=== PATIENT | male | born 1940 | race Caucasian/White ===

== ENCOUNTER 2019-06-01 06:58 | Day surgery (SDC) | payer MEDICARE ==
[2019-05-29 10:41] VITALS: BP 131/70
--- NOTE | 2019-05-29 10:57 | NUR ---
REPORTED EKG TO DOCTOR MILLER NO ORDERS, OKAY TO PROCEED.
[2019-05-29 10:58] LABS: BASOPHILS % (AUTO) 0.3 % (0.0-5.0); EOSINOPHILS % (AUTO) 1.4 % (0.0-8.0); HEMATOCRIT 49.4 % (42-54); LYMPHOCYTES % (AUTO) 41.4 % (21.0-51.0); MEAN CORPUSCULAR HEMOGLOBIN 29.9 pg (27.0-33.0); MEAN CORPUSCULAR HGB CONC 34.2 g/dL (32.0-36.0); MEAN CORPUSCULAR VOLUME 87.7 fL (79-99); MONOCYTES % (AUTO) 9.3 % (3.0-13.0); NEUTROPHILS % (AUTO) 47.6 % (40.0-77.0); PLATELET COUNT (AUTO) 218 K/uL (130-400); RED BLOOD CELL COUNT(AUTO) 5.64 MIL/uL (4.50-6.20); RED CELL DISTRIBUTION WIDTH 13.1 % (11.0-15.5); WHITE BLOOD COUNT (AUTO) 7.7 K/uL (4.8-10.8)
[2019-05-29 11:01] LABS: APPEARANCE,URINE Clear (CLEAR); BILIRUBIN,URINE Negative (NEGATIVE); COLOR,URINE Yellow (YELLOW); GLUCOSE, URINE (UA) Negative (NEGATIVE); KETONES,URINE Negative (NEGATIVE); LEUKOCYTE ESTERASE ,URINE Trace (NEGATIVE); NITRATE,URINE Negative (NEGATIVE); OCCULT BLOOD,URINE Negative (NEGATIVE); PROTEIN,URINE Negative (NEGATIVE); UROBILINOGEN,URINE 0.2 mg/dL (0.2-1.0)
[2019-05-29 11:24] LABS: CREATININE 1.2 mg/dL (0.5-1.5); POTASSIUM 4.5 mmol/L (3.5-5.1)
[2019-05-29 11:27] LABS: INR 0.9 (0.85-1.15); PROTHROMBIN TIME 9.5 SEC (9.6-11.6)
[2019-05-29 11:32] LABS: BACTERIA,URINE Rare /HPF (None Seen); RBC,URINE 0-1 /HPF (0-1); SQUAMOUS EPITHELIAL CELL,UR Rare /HPF (0-2); WBC,URINE 0-1 /HPF (0-1)
[2019-06-01] VITALS (22 sets, daily range): BP systolic 101–133; BP diastolic 52–81
[~2019-06-01] VITALS: Ht 176.5 cm; Wt 85.6 kg
[~2019-06-01 06:58] MED LIST: GENTAMICIN 80 MG/NS 100 ML PB 100 ML IV SCH; MULT-1289 PO; TAMS-1 PO
[2019-06-01] MEDS ORDERED: LACTATED RINGERS 1000ML 1,000 ML IV ONE (07:05)
[2019-06-01] MEDS ORDERED: MIDAZOLAM HCL 1 MG/ML 2ML VIAL ONE (07:19)
[2019-06-01] MEDS ORDERED: DEXAMETHASONE SOD PHOSPHATE 10MG/ML 1ML VIAL ONE (07:19)
[2019-06-01] MEDS ORDERED: LIDOCAINE PF 2% 5ML ABBOJECT ONE (07:19)
[2019-06-01] MEDS ORDERED: GLYCOPYRROLATE 1 MG/5 ML SYRINGE ONE (07:19)
[2019-06-01] MEDS ORDERED: PROPOFOL 10 MG/ML 20ML VIAL IV ONE (07:19)
[2019-06-01] MEDS ORDERED: SUCCINYLCHOLINE 200MG/10ML SYR ONE (07:19)
[2019-06-01] MEDS ORDERED: ONDANSETRON HCL 4 MG/2 ML VIAL ONE (07:19)
[2019-06-01] MEDS ORDERED: NEOSTIGMINE 5MG/5ML SYR IV ONE (07:20)
[2019-06-01] MEDS ORDERED: ROCURONIUM 10MG/1ML SYR 10 MG/ML ML ONE (07:20)
[2019-06-01] MEDS ORDERED: FENTANYL CITRATE PF 50 MCG/1 ML 2ML VIAL ONE ×2 (07:22→09:42)
[2019-06-01] MEDS: CEFTRIAXONE SODIUM 1 GM IVP SCH ×2 (07:45→08:50)
[2019-06-01] MEDS ORDERED: EPHEDRINE SULFATE 50 MG/ML AMPULE ONE (09:02)
--- NOTE | 2019-06-01 11:35 | NUR ---
ASSESSMENT RECEIVED PT FROM PACU STAFF Maggi MAGANA RN. PT [id number]. 20FR ROJAS IN PLACE DRAINING TO GRAVITY AT BEDSIDE WITH 100ML OF CLEAR YELLOW URINE. BLOODY DRAINAGE NOTED TO HEAD OF PENIS AND CREASE OF THE LEFT GROIN SITE. NO ACTIVE BLEEDING NOTED. GAUZE APPLIED TO HEAD OF PENIS. WILL CONTINUE TO MONITOR. AT BEDSIDE. DENIES ANY PAIN.
--- NOTE | 2019-06-01 11:38 | NUR ---
CBI CBI DISCONTINUED AND REMOVED USING ASEPTIC TECHNIQUE. DENIES ANY PAIN.
--- NOTE | 2019-06-01 12:15 | NUR ---
DISCHARGE ORAL AND WRITTEN DISCHARGE INSTRUCTIONS GIVEN TO PT AND PTS ALONG WITH PRESCRIPTION. NO ACTIVE BLEEDING NOTED TO GAUZE APPLIED TO HEAD OF PENIS. 200ML OF CLEAR YELLOW URINE NOTED IN BAG. INSTRUCTIONS GIVEN TO ON IMPORTANCE OF MONITORING URINE FOR CLOTS, HEAVY BLEEDING, OR NO FLOW OF URINE. VERBALIZED UNDERSTANDING.
== END 2019-06-01 12:25 | disposition home or self-care (01) ==
LOC: DAH 06:58
PROVIDERS: ATTEND Urology
DX: N40.1 Benign prostatic hyperplasia with lower urinary tract symptoms (principal); N35.919 Unspecified urethral stricture, male, unspecified site; R31.9 Hematuria, unspecified
CPT/HCPCS: 36415; 52648; 71045; 80048; 81001; 85025; 85610; 87088; 93005; 96365; A4215; A4221; A4222; A4223; A4354; A4358; A4452; A4600; A4663; A6260; J0330; J0696; J1100; J1580; J2001; J2250; J2405; J2704; J2710; J3010 ×2; J3490 ×2; J7030; J7120

== ENCOUNTER → 2024-03-28 | Outpatient (CLI) | payer MEDICARE ==
[~2024-03-28] MED LIST changes: -GENTAMICIN 80 MG/NS 100 ML PB 100 ML IV SCH
== END | disposition home or self-care (01) ==
LOC: RAH 15:15
PROVIDERS: ATTEND Physician Assistant
DX: M25.862 Other specified joint disorders, left knee (principal); M25.861 Other specified joint disorders, right knee; M25.561 Pain in right knee; M25.562 Pain in left knee; N62 Hypertrophy of breast
CPT/HCPCS: 73565; 76642; 73560